=== PATIENT | female | born 1995 | race Asian ===

== ENCOUNTER 2020-10-31 21:57 | Emergency (ER) | payer OTHER ==
[2020-10-31] MEDS ORDERED: ACETAMINOPHEN 325 MG TABLET PO ONE (22:29)
[2020-10-31] MEDS ORDERED: CYCLOBENZAPRINE HCL 10 MG TABLET PO ONE (22:29)
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
[2020-11-01 00:07] VITALS: BP 106/69
== END 2020-11-01 00:05 | disposition home or self-care (01) ==
LOC: ER 21:57
DX: M89.8X8 Other specified disorders of bone, other site (principal); R51.9 Headache, unspecified; R68.84 Jaw pain; V43.62XA Car passenger injured in collision with other type car in traffic accident, initial encounter; W22.12XA Striking against or struck by front passenger side automobile airbag, initial encounter
CPT/HCPCS: 71120; 99283